=== PATIENT | female | born 1945 | race Caucasian/White ===

== ENCOUNTER → 2017-06-05 | Outpatient (CLI) | payer MEDICARE ==
[~2017-06-05] MED LIST: ABILIFY10 MG; ACTONEL5 MG PO; ALENDRONATE SOD35 M1; AMIODARONE HYD200 MG PO; AMLO5TAB PO; AMPICILLIN500 MG PO; BAYER ASPIRIN R81 MG PO; BISOPROLOL 5MG T5 MG PO; CLOPIDOGREL75 M2 PO; DOXYCYCLINE100 M1; ESCITALOPRAM10 M1 PO; FEMARA2.5 MG PO; FERROUS SULFAT325 M2 PO; FUROSEMIDE20 MG PO; GLYBURIDE5 MG PO; HYZAAR 50-12.51 EACH PO; INSULIN GL100 UNITS/ SC; INSULIN GL100 UNITS1 SC; JANUMET 1000 MG1 TAB PO; JANUMET 50-1,01 EACH PO; LANTUS INS100 UNITS/ SC; LANTUS SOLOS100 U/ML SC; LETROZOLE2.5 MG; LEVSIN0.125 M1 PO; LEXAPRO 10 MG T10 MG PO; LEXAPRO10 MG PO; LIPITOR40 MG PO; NYSTATIN 1100000 UNI PO; PANTOPRAZOLE SO40 M1 PO; PRILOSEC20 MG PO; PYRIDOXINE PO; SERTRALINE25 MG PO; SYNTHROID 0.0.125 MG PO; SYNTHROID 0.1M0.1 MG PO; VITAMIN B COMPL1 CAP PO; VITAMIN B122500 MC1 PO; VITAMIN D1000 IU PO; VITAMIN D31000 IU PO
--- NOTE | 2017-06-05 13:17 | RADIOLOGY REPORT PS360 ---
CHEST(2 VIEWS-NOT PORTABLE) HISTORY: GARY RALES ORDERING PHYSICIAN: CELESTE VALENTINO APRN PATIENT AGE: 72 years COMPARISON: 11/12/2016 FINDINGS: There has been an interval median sternotomy/CABG with a bipolar pacemaker present. Increased density is noted along the left heart border which may be related to postsurgical changes with scarring in the left midlung. Atelectasis is also a consideration. There is a pectus deformity with silhouetting out of the right heart border. There is been prior right breast surgery. No acute bony anomalies. IMPRESSION: 1. Interval CABG with increased density in the left mid and lower lung zone which may be related to postsurgical changes versus atelectasis. Consider follow-up chest to confirm stability or resolution 2. Pectus excavatum
[2017-06-05 14:31] LABS: BUN 17 mg/dL (7-18)
[2017-06-05 14:37] LABS: GFR (ESTIMATED) 29 ML/MIN (59-)
== END ==
LOC: LAB 12:39 → RAD 12:39
PROVIDERS: Nurse Practitioner
DX: R09.89 Other specified symptoms and signs involving the circulatory and respiratory systems (principal); R06.02 Shortness of breath